=== PATIENT | female | born 1995 | race Caucasian/White ===

== ENCOUNTER 2023-12-30 11:35 | Outpatient (REF) | payer MEDICAID, SELFPAY ==
[2023-12-31 13:21] LABS: CT PCR NOT DETECTED (Not Detect.); NG PCR NOT DETECTED (Not Detect.)
== END 2023-12-30 11:36 | disposition home or self-care (01) ==
LOC: HO.HHCLNP 11:35
PROVIDERS: Visit Provider Nurse Practitioner Family
DX: R30.0 Dysuria (principal)
CPT/HCPCS: 0352U; 87491; 87591

== ENCOUNTER 2023-12-30 18:03 | Outpatient (REF) | payer MEDICAID, SELFPAY ==
[2023-12-31 12:48] LABS: Bacterial Vaginosis PCR POSITIVE (Negative); Candida Group PCR NOT DETECTED (Not Detect); Candida glab krusei PCR NOT DETECTED (Not Detect); Trichomonas vaginalis PCR NOT DETECTED (Not Detect)
== END 2023-12-30 18:04 | disposition home or self-care (01) ==
LOC: HO.HHCLNP 18:03
PROVIDERS: Visit Provider Nurse Practitioner Family
DX: R30.0 Dysuria (principal)
CPT/HCPCS: 0352U

== ENCOUNTER 2024-09-03 16:06 | Outpatient (REF) | payer MEDICAID, SELFPAY ==
--- OUTSIDE RECORDS SUMMARY | 2024-09-03 16:09 | XMS_ITS | Encounter Summary ---
Author Organization [employer] Address [address] [facility] 7t [place] [address] Care Team Providers Care Imitation Marble Mechanic Name Role Phone Dipti Petty MD Primary Care Provider [phone] Reason for Visit * Reason Onset Date Comments Nurse Triage 09/03/2024 Encounter Details Date Type Department Care Team ([facility] st Contact Info) Description 09/03/2024 Telephone [facility] MEDICINE [address] [place], [place] [phone] Dipti Petty MD [address] [place], [place] [phone] Nurse Triage Social History Tobacco Use Types Packs/Day Years Used Date Smoking Tobacco: Never Smokeless Tobacco: Never Comments Unknown Sex and Gender Information Value Date Recorded Sex Assigned at Female 01/14/2022 10:35 AM EDT Legal Sex Female 10:35 AM EDT Gender Identity Female 01/14/2022 10:35 AM EDT Sexual Orientation Don't know 01/14/2022 10 :35 AM EDT documented as of this encounter Miscellaneous Notes * Telephone Encounter - Katie Szymanski RN - 09/03/2024 11:29 AM EDT Triage call Pt reports has had hair loss in patches for last year but, hair did grow back. Now Pt has some patches of dry peeling skin with scabby areas. Pt denies itchiness. Pt is requesting to see provider. ASK apt with [employer] today at 330pm. Pt agrees with disposition and insurance is verified as active prior to booking. Protocol Used: Hair Loss Protocol-Based Disposition: See in Office or Video Visit within 3 Days Video visit not offered Positive Triage Question: * Scabs or crusts are present in the hair * All higher-acuity triage questions were negative Care Advice Discussed: * Reasons To Call Back - Hair does not grow back by 6 months - You have other questions or concerns * Telephone Encounter - Deepak Naidu - 09/03/2024 11:16 AM EDT Symptoms: Hair Loss, Skin Peeling Outcome: Schedule an appointment to be seen within 24 hours Reason: Caller denied all higher acuity questions Please contact pt at [phone]. documented in this encounter Plan of Treatment Not on file documented as of this encounter Visit Diagnoses Not on filedocumented in this encounter Care Teams Imitation Marble Mechanic Relationship Specialty Start Date End Date Dipti Petty MD [address] [place] [id number] PCP - General Family Medicine 03/02/21 documented as of this encounter
[2024-09-03 17:30] LABS: MANUAL DIFF FLAG NO
[2024-09-03 17:38] LABS: Basophils Absolute Auto 0.1 X10*3/uL (0.0-0.2); Basophils Percent Auto 0.7 % (0-2); Eosinophils Absolute Auto 0.2 X10*3/uL (0.0-0.4); Eosinophils Percent Auto 2.1 % (0-4); Hematocrit 34.4 % (37.0-47.0); Hemoglobin 11.5 g/dl (12.0-16.0); Imm Gran Abs Auto 0.01 X10*3/uL (0.00-0.03); Imm Gran Pct Auto 0.1 % (0.0-0.4); Lymphocytes Absolute Auto 2.9 X10*3/uL (1.2-4.9); Lymphocytes Percent Auto 35.1 % (20-40); Mean Corpuscular HGB Conc 33.4 g/dl (31.0-35.0); Mean Corpuscular Hemoglobin 31.5 pg (27.0-33.0); Mean Corpuscular Volume 94.2 fL (80.0-98.0); Mean Platelet Volume 10.7 fL (9.4-12.3); Monocytes Absolute Auto 0.5 X10*3/uL (0.1-1.2); Monocytes Percent Auto 5.8 % (2-11); Neutrophils Absolute Auto 4.7 x10*3/uL (2.0-8.3); Neutrophils Percent Auto 56.2 % (45-73); Platelet Count 251 X10*3/uL (160-400); Red Blood Count 3.65 X10*6/uL (4.20-5.50); Red Cell Distribution Width 12.6 % (11.0-16.0); White Blood Count 8.3 X10*3/uL (4.8-10.8)
[2024-09-03 18:05] LABS: TSH reflex Free T4 1.08 uIU/mL (0.32-4.0)
[2024-09-04 08:54] LABS: Syphilis Screen Nonreactive (Nonreactive)
== END 2024-09-03 16:07 | disposition home or self-care (01) ==
LOC: HO.HHCL 16:06
PROVIDERS: PCP Family Medicine; Visit Provider Nurse Practitioner
DX: L65.9 Nonscarring hair loss, unspecified (principal)
CPT/HCPCS: 36415; 84443; 85025; 86780

== ENCOUNTER 2025-02-08 13:47 | Outpatient (REF) | payer MEDICAID, SELFPAY ==
--- OUTSIDE RECORDS SUMMARY | 2025-02-08 11:30 | XMS_ITS | Encounter Summary ---
Author Organization [employer] Address [address] [facility] 7t [place] [address] Care Team Providers Care Manager Decision Support Name Role Phone Dipti Petty MD Primary Care Provider [phone] Reason for Visit * Reason Comments CHW - Office Visit Encounter Details Date Type Department Care Team ([facility] Contact Info) Description 02/08/2025 11:30 AM EST Office Visit [facility] MEDICINE [address] [place], [place] [phone] Ruthie Elizabeth CNM [address] [place], [place] [phone] Urinary symptom or sign (Primary Dx) Social History Tobacco Use Types Packs/Day Years Used Date Smoking Tobacco: Never Smokeless Tobacco: Never Tobacco Cessation:Counseling Given: Not Answered Comments Unknown Sex and Gender Information Value Date Recorded Sex Assigned at Female 01/14/2022 10:35 AM EDT Legal Sex Female 10:35 AM EDT Gender Identity Female 01/14/2022 10:35 AM EDT Sexual Orientation Bisexual 01/27/2025 1: 26 PM EST documented as of this encounter Last Filed Vital Signs Vital Sign Reading Time Taken Comments Blood Pressure 120/75 02/08/2025 11:42 AM EST Pulse 75 02/08/2025 11:42 AM EST Temperature 37.4 C (99.3 F) 02/08/2025 11:42 AM EST Respiratory Rate 14 02/08/2025 11:42 AM EST Oxygen Saturation 99% 02/08/2025 11:42 AM EST Inhaled Oxygen Concentration - - Weight 87 kg (191 lb 12.8 oz) 02/08/2025 11:42 A M EST Height - - Body Mass Index 31.92 09/03/2024 3:45 PM EDT documented in this encounter Progress Notes * Ruthie Elizabeth CNM - 02/08/2025 11:30 AM EST Subjective Patient ID: Lidya Bond is a 29 y.o. female who presents for urinary symptoms Notes frequency and suprapubic pain x 2 weeks, as well as dark, malodorous urine. Noted some vaginal irritation for a few days. All symptoms other than frequency and urinary odor resolved. Nexplanon inserted less than 5 years ago. Notes some spotting today. 1 AMAB partner. Thinking about getting in next few months. Would like Nexplanon removed at some pont in near future. Visit by KIRT Lyman, under my supervision. Review of Systems Constitutional: Negative. Negative for activity change, appetite change, chills and fever. HENT: Negative. Eyes: Negative. Respiratory: Negative. Negative for chest tightness, shortness of breath, wheezing and stridor. Cardiovascular: Negative. Negative for chest pain. Gastrointestinal: Positive for nausea. Negative for abdominal pain, blood in stool, constipation, diarrhea and vomiting. Nausea at outset; resolved after 2-3 days. Endocrine: Negative for polydipsia. Genitourinary: Positive for frequency, hematuria and urgency. Negative for difficulty urinating, dyspareunia, dysuria, flank pain, genital sores, menstrual problem, pelvic pain, vaginal discharge andvaginal pain. Musculoskeletal: Negative. Negative for arthralgias, back pain and myalgias. Skin: Negative. Allergic/Immunologic: Negative. Neurological: Negative. Negative for dizziness and headaches. Psychiatric/Behavioral: Negative. Negative for self-injury. The patient is not nervous/anxious. Objective BP 120/75 (BP Location: Left arm, Patient Position: Sitting, BP Cuff Size: Adult) Pulse 75 Temp99.3 ??F (37.4 ??C) (Oral) Resp 14 Wt 191 lb 12.8 oz (87 kg) LMP 02/08/2025 SpO2 99% BMI 31.92 kg/m?? Office Visit on 02/08/2025 Component Date Value Ref Range Status Color, UA 02/08/2025 Yellow Final Clarity, UA 02/08/2025 Cloudy Final Glucose, UA 02/08/2025 Negative Final Bilirubin, UA 02/08/2025 Negative Final Ketones, UA 02/08/2025 Negative Final Spec Grav, UA 02/08/2025 1.015 Final Blood, UA 02/08/2025 Positive (A) Negative, None Detected Final moderate pH, UA 02/08/2025 6.5 Final Protein, UA 02/08/2025 Negative Final Urobilinogen, UA 02/08/2025 0.2 Final Leukocytes, UA 02/08/2025 Negative Negative, Rare, Trace, 1+ (17), 2+ (35), 3+ (70) Final Nitrite, UA 02/08/2025 Negative Negative, None Detected Final Appearance, UA 02/08/2025 yellow Final QC Media Lot # 02/08/2025 [id number] Final Lot# Expiration Date 02/08/2025 [id number] Final Physical Exam Constitutional: Appearance: Normal appearance. She is obese. HENT: Head: Normocephalic. Cardiovascular: Rate and Rhythm: Normal rate and regular rhythm. Pulses: Normal pulses. Heart sounds: Normal heart sounds. No murmur heard. No gallop. Pulmonary: Effort: Pulmonary effort is normal. No respiratory distress. Breath sounds: No stridor. No wheezing, rhonchi or rales. Chest: Chest wall: No tenderness. Abdominal: General: Bowel sounds are normal. Palpations: Abdomen is soft. There is no mass. Tenderness: There is no abdominal tenderness. There is no right CVA tenderness, left CVA tendernessor guarding. Hernia: No hernia is present. Skin: General: Skin is warm. Capillary Refill: Capillary refill takes less than 2 seconds. Neurological: General: No focal deficit present. Mental Status: She is alert and oriented to person, place, and time. Psychiatric: Mood and Affect: Mood normal. Behavior: Behavior normal. Assessment/Plan Diagnoses and all orders for this visit: Urinary symptom or sign - POCT urinalysis dipstick manually resulted (CPT 62680) - Culture, Urine, Routine; Future - Chlamydia/N. Gonorrhoeae, PCR, Urine UA unremarkable, urine sent for culture. Urine Chlamydia and Gonorrhea sent to lab. Will contact with any reported growth on culture or positive labs. Advised pt to continue staying well-hydrated. Will schedule appointment for Nexplanon removal at desk. [facility] LEAK OPERATOR [employer] Attestation LEAK OPERATOR [employer] Resident Attestation: Patient was seen and evaluated by Edmundo MORALEZ, in collaboration with Ruthie Elizabeth CNM who has reviewed my assessment and plan. I, Ruthie Elizabeth CNM , have reviewed the resident's note and agree with the assessment & plan of care as documented above. documented in this encounter Plan of Treatment Upcoming Encounters Date Type Department Care Team (Late st Contact Info) Description 02/15/2025 10:30 AM EST Office Visit [facility] MEDICINE [address] [place], [place] [phone] Ruthie Elizabeth CNM [address] [place], [place] [phone] Scheduled Orders Name Type Priority Associated Diagnoses Orde r Schedule Culture, Urine, Routine Microbiology Routine Urinary symptom or sign Expected: 02/08/2025 (Approximate), Expires: 02/08/2026 Chlamydia/N. Gonorrhoeae, PCR, Urine Lab Routine Urinary symptom or sign Ordered: 02/08/2025 documented as of this encounter Procedures Procedure Name Priority Date/Time Associated Diagnosis Comments POCT URINALYSIS DIPSTICK Routine 02/08/2025 12:07 PM EST Urinary symptom or sign documented in this encounter Results * (ABNORMAL) POCT urinalysis dipstick manually resulted (CPT 26601) (02/08/2025 12:07 PM EST) Color, UA Yellow Clarity, UA Cloudy Glucose, UA Negative Bilirubin, UA Negative Ketones, UA Negative Spec Grav, UA 1.015 Blood, UA Positive(A) Negative, None Detected Comment:moderate pH, UA 6.5 Protein, UA Negative Urobilinogen, UA 0.2 Leukocytes, UA Negative Negative, Rare, Trace, 1+ (17), 2+ (35), 3+ (70) Nitrite, UA Negative Negative, None Detected Appearance, UA yellow QC Media Lot # [id number] Lot# Expiration Date [id number] Urine (Urine, Random) 02/08/2025 12:07 PM EST Ruthie Elizabeth CNM POINT OF CARE TEST ENTER/ EDIT ORDERABLES Final Result documented in this encounter Visit Diagnoses Diagnosis Urinary symptom or sign- Primary documented in this encounter Care Teams Manager Decision Support Relationship Specialty Start Date End Date Dipti Petty MD [address] [place] [address] PCP - General Family Medicine 03/02/21 documented as of this encounter
--- OUTSIDE RECORDS SUMMARY | 2025-02-08 17:44 | XMS_ITS | Encounter Summary ---
Author Organization [employer] Address [address] [facility] 7t [place] [address] Care Team Providers Care Contact Center Specialist Name Role Phone Dipti Petty MD Primary Care Provider [phone] Reason for Visit * Reason Onset Date Comments Nurse Triage 02/08/2025 Encounter Details Date Type Department Care Team ([facility] st Contact Info) Description 02/08/2025 Telephone [facility] MEDICINE [address] [place], [place] [phone] Dipti Petty MD [address] [place], [place] [phone] Nurse Triage Social History Tobacco Use Types Packs/Day Years Used Date Smoking Tobacco: Never Smokeless Tobacco: Never Comments Unknown Sex and Gender Information Value Date Recorded Sex Assigned at Female 01/14/2022 10:35 AM EDT Legal Sex Female 10:35 AM EDT Gender Identity Female 01/14/2022 10:35 AM EDT Sexual Orientation Bisexual 01/27/2025 1: 26 PM EST documented as of this encounter Miscellaneous Notes * Telephone Encounter - Ruthie Elizabeth CNM - 02/08/2025 10:00 AM EST Thanks! * Telephone Encounter - Florinda Gonzales RN - 02/08/2025 9:48 AM EST Incoming call from pt who reports urinary symptoms since 01/27/25 triage call (no showed to appointment on 01/27/25). Today she reports dark orange urine, odor, and intermittent pelvic cramping. Denies fever, flank pain, burning sensation or pain with urination. Denies any other concerns. She agreed to appointment today at 11:30am. Reminded to hydrate well with water. Pt verbalized understanding. Future Appointments Date Time Provider Department Center 02/08/2025 11:30 AM Ruthie Elizabeth CNM MEDICINE [facility] * Telephone Encounter - Florinda Gonzales RN - 02/08/2025 9:32 AM EST Telephone call to pt to triage note below, no answer, left voicemail to call back [facility]. Sent MyChartmessage as well. Pt to call back PRN. * Telephone Encounter - Chely Hoyt - 02/08/2025 8:57 AM EST Symptoms: Urine Symptoms, Urine - Blood In Outcome: Schedule an urgent appointment (within 4 hours) or talk to a nurse or provider soon Reason: Pain when passing urine (peeing) Contact pt at [phone] documented in this encounter Plan of Treatment Upcoming Encounters Date Type Department Care Team (Late st Contact Info) Description 02/15/2025 10:30 AM EST Office Visit [facility] MEDICINE [address] [place] [address] Ruthie Elizabeth CNM [address] [place] [address] documented as of this encounter Visit Diagnoses Not on filedocumented in this encounter Care Teams Contact Center Specialist Relationship Specialty Start Date End Date Dipti Petty MD [address] [place] [address] PCP - General Family Medicine 03/02/21 documented as of this encounter
--- OUTSIDE RECORDS SUMMARY | 2025-02-08 17:44 | XMS_ITS | Encounter Summary ---
Author Organization [employer] Address [address] [facility] 7t [place] [address] Care Team Providers Care Electronic Game Developer Name Role Phone Dipti Petty MD Primary Care Provider [phone] Encounter Details Date Type Department Care Team (Late Contact Info) Description 12/31/2023 Orders Only [facility] MED & PEDS [address] [place], [place] [phone] Natasha Boyle FNP [address] [place] [address] Bacterial vaginosis Social History Tobacco Use Types Packs/Day Years Used Date Smoking Tobacco: Never Smokeless Tobacco: Never Comments Unknown Sex and Gender Information Value Date Recorded Sex Assigned at Female 01/14/2022 10:35 AM EDT Legal Sex Female 10:35 AM EDT Gender Identity Female 01/14/2022 10:35 AM EDT Sexual Orientation Bisexual 01/27/2025 1: 26 PM EST documented as of this encounter Plan of Treatment Upcoming Encounters Date Type Department Care Team (Late Contact Info) Description 02/15/2025 10:30 AM EST Office Visit [facility] MEDICINE [address] [place] [address] Ruthie Elizabeth CNM [address] [place] [address] documented as of this encounter Visit Diagnoses Diagnosis Bacterial vaginosis Unspecified vaginitis and vulvovaginitis documented in this encounter Care Teams Electronic Game Developer Relationship Specialty Start Date End Date Dipti Petty MD [address] [place] [id number] PCP - General Family Medicine 03/02/21 documented as of this encounter
--- OUTSIDE RECORDS SUMMARY | 2025-02-08 17:44 | XMS_ITS | Clinical Summary ---
Author Organization [employer] Address [address] [place] [address] 7t [place] [address] Care Team Providers Care Bridge Worker Name Role Phone Dipti Petty MD Primary Care Provider [phone] Allergies No known active allergies Medications ketoconazole (NIZOral) 2 % shampooIndicati ons:Tinea capitis APPLY TOPICALLY 2 TIMES A WEEK. 120 mL Active Active Problems Problem Noted Date Diagnosed Date Allergic rhinitis 05/22/2023 Resolved Problems Problem Noted Date Diagnosed Date Resolved Date UTI symptoms 05/22/2023 04/12/2024 Encounters Date Type Department Care Team Description 02/08/2025 11:30 AM EST Office Visit [facility] MEDICINE [address] [place] [phone] Ruthie Elizabeth CNM Urinary symptom or sign (Primary Dx) 02/08/2025 Travel 02/08/[address] [phone] Dipti Petty MD Nurse Triage 01/27/2025 Telephone [facility] MEDICINE [address] [place] [address] [phone] Dipti Petty MD Nurse Triage 01/27/2025 Travel 01/27/2025 Telephone [facility] MEDICINE [address] [place] [address] [phone] Dipti Petty MD Nurse Triage 12/09/2024 Refill [facility] MEDICINE [address] [place] [phone] Dipti Petty MD Tinea capitis from Last 3 Months Immunizations Immunization Administration Dates Next Due Hep A, Adult 08/16/2015 Influenza injectable quadriv alent IIV4 with preservative 02/14/2016 Influenza, IIV3, injectable 11/28/2009 Social History Tobacco Use Types Packs/Day Years Used Date Smoking Tobacco: Never Smokeless Tobacco: Never Tobacco Cessation:Counseling Given: Not Answered Comments Unknown Sex and Gender Information Value Date Recorded Sex Assigned at Female 01/14/2022 10:35 AM EDT Legal Sex Female 10:35 AM EDT Gender Identity Female 01/14/2022 10:35 AM EDT Sexual Orientation Bisexual 01/27/2025 1: 26 PM EST Last Filed Vital Signs Vital Sign Reading [...] oz) 02/08/2025 11:42 A M EST Height 165.1 cm (5' 5 ) 09/03/2024 3:45 PM EDT Body Mass Index 31.92 09/03/2024 3:45 PM EDT Plan of Treatment Upcoming Encounters Date Type Department Care Team (Late st Contact Info) Description 02/15/2025 10:30 AM EST Office Visit [facility] MEDICINE [address] [place] [address] Ruthie Elizabeth CNM [address] [place] [address] Health Maintenance Due Date Last Done Comments Depression Screening 1995 HIV Screening 1995 SDOH Screening 1995 Alcohol/Substance Use Screening 2007 Family Planning (PISQ) 2010 HPV Vaccines (1 - 3-dose series) 2010 Hepatitis C Screening 2013 DTaP/Tdap/Td Vaccines (1 - Tdap) 2014 Hepatitis B Vaccines (1 of 3 - 19+ 3-dose series) 2014 Pap Smear 2016 COVID-19 Vaccine (3 - 2024-2 6 season) 2024 11/09/2020, 10/19/2020 Influenza Vaccine (#1) 2024 6, 11/28/2009 Disability Screening 01/27/2026 01/27/2025 Tobacco Screening 02/08/2026 02/08/2025 Zoster Vaccines (1 of 2) 2045 RSV Patients and Patients Aged 60 years or older (1 - 1-dose 75+ series) 2070 Hepatitis A Vaccines Aged Out 08/16/2015 No long er eligible based on patient's age to complete this topic HIB Vaccines Aged Out No longer eligi ble based on patient's age to complete this topic IPV Vaccines Aged Out No longer eligi ble based on patient's age to complete this topic Meningococcal B Vaccine Aged Out No l onger eligible based on patient's age to complete this topic Meningococcal Vaccine Aged Out No mckay lisandro eligible based on patient's age to complete this topic Pneumococcal Vaccine: Pediatrics (0 to 5 Years) and At-Risk Patients (6 to 49) Years Aged Out No longer eligible b ased on patient's age to complete this topic RSV under 20 months Aged Out No longe r eligible based on patient's age to complete this topic Rotavirus Vaccines Aged Out No longer eligible based on patient's age to complete this topic Procedures Procedure Name Priority Date/Time Associated Diagnosis Comments POCT URINALYSIS DIPSTICK Routine 02/08/2025 12:07 PM EST Urinary symptom or sign from Last 3 Months Results * (ABNORMAL) POCT urinalysis dipstick manually resulted (CPT 38873) (02/08/2025 12:07 PM EST) Color, UA Yellow [...] Media Lot # [id number] Lot# Expiration Date [id number] Urine (Urine, Random) 02/08/2025 12:07 PM EST Ruthie Elizabeth CNM POINT OF CARE TEST ENTER/ EDIT ORDERABLES Final Result from Last [address] [place] [id number] [email or web address] [email or web address] [place] [phone] [place] [id number] Care Teams Bridge Worker Relationship Specialty Start Date End Date Dipti Petty MD [address] [place] [address] PCP - General Family Medicine 03/02/21
--- OUTSIDE RECORDS SUMMARY | 2025-02-08 17:44 | XMS_ITS | Encounter Summary ---
Author Organization [employer] Address 75 [facility] 7t [place] [address] Care Team Providers Care Process Improvement Consultant Name Role Phone Dipti Petty MD Primary Care Provider [phone] Encounter Details Date Type Department Care Team (Latest Contact Info) Description 02/08/2025 Travel Social History Tobacco Use Types Packs/Day Years [...] Description 02/15/2025 10:30 AM EST Office Visit [facility] MEDICINE [address] [place] [address] Ruthie Elizabeth CNM [address] [place] [address] documented as of this encounter Visit Diagnoses Not on filedocumented in this encounter Care Teams Process Improvement Consultant Relationship Specialty Start Date End Date Dipti Petty MD [address] [place] [address] PCP - General Family Medicine 03/02/21 documented as of this encounter
--- OUTSIDE RECORDS SUMMARY | 2025-02-08 17:44 | XMS_ITS | Encounter Summary ---
Author Organization [employer] Address 75 [facility] 7t [place] [address] Care Team Providers Care Wheel Inspector Name Role Phone Dipti Petty MD Primary Care Provider [phone] Reason for Visit * Reason Onset Date Comments Nurse Triage 09/03/2024 Encounter Details Date Type Department Care Team ([facility] st Contact Info) Description 09/03/2024 Telephone [facility] MEDICINE [address] [place], [place] [phone] Dipti Petty MD [address] [place], [place] [phone] Nurse Triage Social History Tobacco Use Types [...] requesting to see provider. ASK apt with AUTOMATIC VULCANIZING OPERATOR Appram today at 330pm. Pt agrees with [...] or concerns * Telephone Encounter - Deepak Evangelista - 09/03/2024 11:16 AM EDT Symptoms: Hair Loss, Skin Peeling Outcome: Schedule an appointment to be seen within 24 hours Reason: Caller denied all higher acuity questions Please contact pt at [phone]. documented in this encounter Plan of Treatment Upcoming Encounters Date Type Department Care Team (Late st Contact Info) Description 02/15/2025 10:30 AM EST Office Visit [facility] MEDICINE [address] [place] [address] Ruthie Elizabeth CNM [address] [place] [address] documented as of this encounter Visit Diagnoses Not on filedocumented in this encounter Care Teams Wheel Inspector Relationship Specialty Start Date End Date Dipti Petty MD [address] [place] [address] PCP - General Family Medicine 03/02/21 documented as of this encounter
[2025-02-08 23:18] LABS: CT PCR Urine NOT DETECTED (Not Detect.); NG PCR Urine NOT DETECTED (Not Detect.)
== END 2025-02-08 13:48 | disposition home or self-care (01) ==
LOC: HO.HHCLNP 13:47
PROVIDERS: Visit Provider Advanced Practice Midwife
DX: Z20.2 Contact with and (suspected) exposure to infections with a predominantly sexual mode of transmission (principal); R39.9 Unspecified symptoms and signs involving the genitourinary system
CPT/HCPCS: 87086; 87491; 87591